=== PATIENT | male | born 1970 | race Hispanic/Latino ===

== ENCOUNTER 2023-03-04 10:22 | Emergency (ER) | payer BC ==
[~2023-03-04] VITALS: Ht 175.3 cm; Wt 107.5 kg
[2023-03-04 10:48] LABS: BASOPHILS % (AUTO) 0.5 % (0.0-5.0); EOSINOPHILS % (AUTO) 0.2 % (0.0-8.0); HEMATOCRIT 48.1 % (42-54); MEAN CORPUSCULAR HEMOGLOBIN 28.3 pg (27.0-33.0); MEAN CORPUSCULAR HGB CONC 32.4 g/dL (32.0-36.0); MEAN CORPUSCULAR VOLUME 87.1 fL (79-99); MONOCYTES % (AUTO) 4.7 % (3.0-13.0); NEUTROPHILS % (AUTO) 74.1 % (40.0-77.0); PLATELET COUNT (AUTO) 236 K/uL (130-400); RED BLOOD CELL COUNT(AUTO) 5.52 MIL/uL (4.50-6.20); RED CELL DISTRIBUTION WIDTH 13.1 % (11.0-15.5); WHITE BLOOD COUNT (AUTO) 8.2 K/uL (4.8-10.8)
[2023-03-04 10:57] LABS: CREATININE 1.2 mg/dL (0.5-1.5); POTASSIUM 4.5 mmol/L (3.5-5.1)
[2023-03-04 11:01] LABS: ALBUMIN 4.1 g/dL (3.5-5.0); TOTAL PROTEIN, SERUM 7.6 g/dL (6.0-8.3)
[2023-03-04 11:10] LABS: APPEARANCE,URINE CLEAR (CLEAR); BILIRUBIN,URINE NEGATIVE (NEGATIVE); COLOR,URINE LIGHT-YELLOW (YELLOW); GLUCOSE, URINE (UA) NEGATIVE (NEGATIVE); KETONES,URINE NEGATIVE (NEGATIVE); LEUKOCYTE ESTERASE ,URINE NEGATIVE Leu/uL (NEGATIVE); NITRATE,URINE NEGATIVE (NEGATIVE); OCCULT BLOOD,URINE NEGATIVE (NEGATIVE); PROTEIN,URINE NEGATIVE (NEGATIVE); UROBILINOGEN,URINE 0.2 mg/dL (0.2-1.0)
[2023-03-04] MEDS ORDERED: DEXAMETHASONE SOD PHOSPHATE 4 MG/ML 1ML VIAL IV ONE (11:30)
[2023-03-04] MEDS ORDERED: MECLIZINE HCL 12.5 MG TABLET PO ONE (11:30)
[2023-03-04] MEDS ORDERED: 0.9%NACL 1000ML 1,000 ML IV ONE (11:30)
[2023-03-04] MEDS ORDERED: MECLIZINE HCL 25 MG TABLET ONE (11:38)
[2023-03-04] MEDS ORDERED: LORA10TA7 PO (14:10)
[2023-03-04] MEDS ORDERED: FLUT16H NASAL (14:10)
[2023-03-04 14:36] VITALS: BP 144/84
== END 2023-03-04 14:43 | disposition home or self-care (01) ==
LOC: EDH 10:22
DX: J32.9 Chronic sinusitis, unspecified (principal); R42 Dizziness and giddiness; Z20.822 Contact with and (suspected) exposure to COVID-19
CPT/HCPCS: 99284; 96374; 70450; 87635; 96361; 82550; 84484; 80053; 85025; 81003; 36415; 93005; J1100; C9803

== ENCOUNTER 2023-09-09 11:02 | Emergency (ER) | payer BC ==
[~2023-09-09] VITALS: Ht 175.3 cm; Wt 104.3 kg
[~2023-09-09 11:02] MED LIST: FLUT16H NASAL; LORA10TA7 PO
[2023-09-09 11:10] VITALS: BP 151/95; PULSE 92; RESP 16; O2SAT 98
[2023-09-09] MEDS ORDERED: CEFAZOLIN SODIUM 1 GM VIAL IM STA (11:48)
[2023-09-09] MEDS ORDERED: DIPH,PERTUSS(ACELL),TET VAC/PF 0.5 ML VIAL IM ONE (12:00)
[2023-09-09] MEDS ORDERED: HYDROCODONE/ACETAMINOPHEN 5/325 MG TAB PO ONE (12:00)
[2023-09-09] MEDS ORDERED: LIDOCAINE HCL 1% 20 ML VIAL INJ SCH (12:00)
[2023-09-09] MEDS ORDERED: CEPH500B PO (15:16)
[2023-09-09] MEDS ORDERED: MUPI22OI2 TP (15:16)
[2023-09-09] MEDS ORDERED: BACITRACIN 1 EACH PACKET TP ONE ×2 (15:35→16:00)
== END 2023-09-09 15:48 | disposition home or self-care (01) ==
LOC: EDH 11:02
DX: S61.212A Laceration without foreign body of right middle finger without damage to nail, initial encounter (principal); W23.0XXA Caught, crushed, jammed, or pinched between moving objects, initial encounter; Y93.89 Activity, other specified; Y92.89 Other specified places as the place of occurrence of the external cause; Y99.8 Other external cause status
CPT/HCPCS: 99284; 73200; 90715; 73140; 96372; 90471; 12002; J0690